=== PATIENT | male | born 1995 | race Caucasian/White ===

== ENCOUNTER 2018-04-30 14:01 | Emergency (ER) | payer OTHER ==
[2018-04-30 14:01] VITALS: BMI 25.0
[2018-04-30 14:26] VITALS: BP 114/77; PULSE 89; RESP 18; TEMP 97.8; O2SAT 100
[2018-04-30] MEDS ORDERED: Sodium Chloride 0.9% 1,000 ML IV STA (14:55)
[2018-04-30 15:11] LABS: PH,URINE 8.5 (4.7-8.0); URINE BILIRUBIN NEGATIVE (NEGATIVE); URINE BLOOD NEGATIVE (NEGATIVE); URINE GLUCOSE (UA) NEGATIVE (NEGATIVE); URINE LEUKOCYTE ESTERASE NEGATIVE Leu/uL (NEGATIVE); URINE PROTEIN 30 mg/dL (<30 mg/dL); URINE UROBILINOGEN 0.2 E.U./dL (<1 E.U./dL)
[2018-04-30 15:13] LABS: URINE APPEARANCE CLEAR (CLEAR); URINE COLOR YELLOW (YELLOW)
[2018-04-30 15:20] LABS: URINE EPITHELIAL CELLS 0 - 2 /hpf (0-5); URINE RBC 0 - 2 /hpf (0-2); URINE WBC 0 - 2 /hpf (0-6)
[2018-04-30 15:21] LABS: URINE BACTERIA FEW /hpf
[2018-04-30 15:28] LABS: BASO # 0.02 K/mm3 (0.0-2.0); BASO % 0.4 % (0.0-3.0); EOS % 0.5 % (1.5-5.0); GRAN # 4.1 (1.4-6.5); GRAN % 72.4 % (50.0-68.0); HEMOGLOBIN 14.6 g/dL (14.0-18.0); LYMPH # 1.2 (1.2-3.4); MEAN CELL VOLUME 88.5 fl (80.0-105.0); MEAN CORPUSCULAR HEMOGLOBIN 31.1 pg (25.0-35.0); MEAN CORPUSCULAR HGB CONC 35.2 g/dl (31.0-37.0); MEAN PLATELET VOLUME 9.3 fl (7.0-11.0); MONO # 0.3 (0.1-0.6); MONO % 5.7 % (1.0-6.0); RBC 4.69 10^6/uL (3.5-6.1); RED CELL DISTRIBUTION WIDTH 12.1 % (11.5-14.5); WHITE BLOOD COUNT 5.7 10^3/uL (4.5-11.0)
[2018-04-30 15:36] LABS: ALB/GLOB RATIO 1.5 (1.1-1.8); ALBUMIN 4.9 g/dL (3.0-4.8); ALT/SGPT 63 U/L (7-56); AMYLASE 87 U/L (35-125); AST/SGOT 42 U/L (17-59); BLOOD UREA NITROGEN 11 mg/dL (7-21); GFR NON-AFRICAN AMERICAN > 60; LIPASE 108 U/L (23-300)
[2018-04-30 15:46] LABS: INR 1.28; PARTIAL THROMBOPLASTIN TIME 26.9 Seconds (25.1-36.5); PROTHROMBIN TIME 14.7 SECONDS (9.4-12.5)
--- NOTE | 2018-04-30 22:16 | ED PDOC ---
Arrival/HPI - General Chief Complaint: GI Problem Time Seen by Provider: 04/30/18 14:28 Historian: Patient - History of Present Illness Narrative History of Present Illness (Text): 22 year old with no significant past medical history presents to the emergency department with father complaining of vomiting since 11 a.m. this morning s/p drinking large amounts of alcohol last night. Patient was drinking liquor last night, states he was drinking on an empty stomach.States he has vomited over 30 times this morning. Unable to tolerate PO today. States this has happened to him before a few months ago and that he visited his primary doctor where he received Zofran which provided relief. Denies drug use, alcohol use today, SI, HI, hallucinations, abdominal pain, diarrhea, constipation, headache, dizziness, chest pain, SOB, urinary symptoms, back pain, neck pain, vision changes, or any other associated complaints. Past Medical History - Provider Review Nursing Documentation Reviewed: Yes - Psychiatric Hx Substance Use: No Family/Social History - Physician Review Nursing Documentation Reviewed: Yes Family/Social History: No Known Family HX Smoking Status: Never Smoked Hx Alcohol Use: Yes Hx Substance Use: No Allergies/Home Meds Allergies/Adverse Reactions: Allergies No Known Allergies Allergy (Verified 04/30/18 14:27) Home Medications: Home Meds Medication Instructions Recorded Confirmed No Known Home Med 10/17/15 04/30/18 Review of Systems - Physician Review All systems were reviewed & negative as marked: Yes - Review of Systems Constitutional: Normal. absent: Fatigue, Fevers Eyes: Normal. absent: Photophobia ENT: Normal. absent: Sore Throat, Sinus Congestion Respiratory: Normal. absent: SOB, Cough Cardiovascular: Normal. absent: Chest Pain, Palpitations, Syncope Gastrointestinal: Normal, Nausea, Vomiting, Appetite Changes. absent: Abdominal Pain, Stool Changes Genitourinary Male: Normal. absent: Dysuria, Frequency Musculoskeletal: Normal. absent: Arthralgias, Back Pain, Neck Pain Skin: Normal. absent: Rash Neurological: Normal. absent: Headache, Dizziness, Gait Changes, Disequilibrium Endocrine: Normal Hemo/Lymphatic: Normal Psychiatric: Normal Physical Exam Vital Signs Reviewed: Yes Vital Signs Temp Pulse Resp BP Pulse Ox 04/30/18 14:25 97.8 F 89 18 114/77 100 Temperature: Afebrile Blood Pressure: Normal Pulse: Regular Respiratory Rate: Normal Appearance: Positive for: Well-Appearing, Non-Toxic, Comfortable Pain Distress: None Mental Status: Positive for: Alert and Oriented X 3 - Systems Exam Head: Present: Atraumatic, Normocephalic Pupils: Present: PERRL Extroacular Muscles: Present: EOMI Conjunctiva: Present: Normal Mouth: Present: Moist Mucous Membranes Pharnyx: Present: Normal. No: ERYTHEMA, EXUDATE, TONSILS ENLARGED Nose (External): Present: Atraumatic Nose (Internal): Present: Normal Inspection Neck: Present: Normal Range of Motion. No: Meningeal Signs, MIDLINE TENDERNESS, Paraspinal Tenderness Respiratory/Chest: Present: Clear to Auscultation, Good Air Exchange. No: Respiratory Distress, Accessory Muscle Use Cardiovascular: Present: Regular Rate and Rhythm, Normal S1, S2, Peripheal Pulses Present Abdomen: Present: Normal Bowel Sounds. No: Tenderness, Distention, Peritoneal Signs, Rebound, Guarding Back: Present: Normal Inspection. No: CVA Tenderness, Midline Tenderness, Paraspinal Tenderness Upper Extremity: Present: Normal Inspection, Normal ROM, NORMAL PULSES, Neurovas cularly Intact, Capillary Refill < 2s. No: Cyanosis, Edema Lower Extremity: Present: Normal Inspection, NORMAL PULSES, Normal ROM, Neurovascularly Intact, Capillary Refill < 2 s. No: Edema Neurological: Present: GCS=15, CN II-XII Intact, Speech Normal, Motor Func Grossly Intact, Normal Sensory Function, Gait Normal Skin: Present: Warm, Dry, Normal Color. No: Rashes Lymphatic: No: Cervical Adenopathy Psychiatric: Present: Alert, Oriented x 3, Normal Insight, Normal Concentration, Normal Affect, Normal Mood Medical Decision Making ED Course and Treatment: Initial Plan: * CBC, CMP * Lipase * Coags * UA * Obstructive Series * IVF * Zofran * Pepcid Patient reports decreased nausea after medications, but is asking to leave ED prior to lab results or imaging. The patient is choosing to leave against medical advice. I have personally explained to the patient that choosing to do so may result in permanent bodily harm, disability, or . I have discussed at great length that without further evaluation and monitoring there may be unforeseen circumstances and/or deterioration causing permanent bodily harm or as a result of their choice. The patient is alert, oriented, and shows the mental capacity to make clear decisions regarding the patients health care at this time. The patient continues to wish to leave against medical advice. In light of the patients decision to leave against medical advice, follow-up nichols s been arranged and the patient is aware of the importance to following up as instructed. The patient has been advised that they should return to the emergency room immediately if they change their mind at any time, or if their condition begins to change or worsen in any way. AMA form signed by me and patient, witnessed by nurse Keerthi. IV line removed prior to patient leaving ED. - Lab Interpretations Lab Results: 04/30/18 15:10 04/30/18 15:10 Lab Results 04/30/18 15:10: Sodium 140, Potassium 3.8, Chloride 104, Carbon Dioxide 26, Anion Gap 14, BUN 11, Creatinine 0.7 L, Est GFR ( Amer) > 60, Est GFR (Non-Af Amer) > 60, Random Glucose 101, Calcium 10.0, Total Bilirubin 0.7, AST 42, ALT 63 H, Alkaline Phosphatase 58, Total Protein 8.1, Albumin 4.9 H, Globulin 3.2, Albumin/Globulin Ratio 1.5, Amylase 87, Lipase 108 04/30/18 15:10: PT 14.7 H, INR 1.28, APTT 26.9 04/30/18 15:10: WBC 5.7, RBC 4.69, Hgb 14.6, Hct 41.5 L, MCV 88.5, MCH 31.1, MCHC 35.2, RDW 12.1, Plt Count 283, MPV 9.3, Gran % 72.4 H, Lymph % (Auto) 21.0 L, [place] % (Auto) 5.7, Eos % (Auto) 0.5 L, Baso % (Auto) 0.4, Gran # 4.10, Lymph # (Auto) 1.2, [place] # (Auto) 0.3, Eos # (Auto) 0.0, Baso # (Auto) 0.02 04/30/18 15:00: Urine Color Yellow, Urine Appearance Clear, Urine pH 8.5, Ur Specific [place] 1.015, Urine Protein 30 H, Urine Glucose (UA) Negative, Urine Ketones Negative, Urine Blood Negative, Urine Nitrate Negative, Urine Bilirubin Negative, Urine Urobilinogen 0.2, Ur Leukocyte Esterase Negative, Urine RBC 0 - 2, Urine WBC 0 - 2, Ur Epithelial Cells 0 - 2, Urine Bacteria Few - RAD Interpretation Radiology Orders: 04/30/18 14:55 obstructive [ABD 2 VIEWS (FLAT/UP OR DECUB)] [RAD] Stat - Medication Orders Current Medication Orders: Discontinued Medications Famotidine (Pepcid) 20 mg IVP STAT STA Stop: 04/30/18 14:44 Last Admin: 04/30/18 15:01 Dose: 20 mg IVP Administration Document 04/30/18 15:01 EQ (Rec: 04/30/18 15:01 EQ [id number] Charges for Administration # of IVP Administrations 1 Sodium Chloride (Sodium Chloride 0.9%) 1,000 mls @ 999 mls/hr IV .Q1H1M STA Stop: 04/30/18 15:55 Last Admin: 04/30/18 15:00 Dose: 999 mls/hr eMAR Start Stop Document 04/30/18 15:00 EQ (Rec: 04/30/18 15:00 [facility] Intravenous Solution Start Date 04/30/18 Start Time 15:00 Ondansetron HCl (Zofran Inj) 4 mg IVP STAT STA Stop: 04/30/18 14:44 Last Admin: 04/30/18 15:00 Dose: 4 mg IVP Administration Document 04/30/18 15:00 EQ (Rec: 04/30/18 15:00 EQ [facility] Charges for Administration # of IVP Administrations 1 Disposition/Present on Arrival - Present on Arrival Any Indicators Present on Arrival: No History of DVT/PE: No History of Uncontrolled Diabetes: No Urinary Catheter: No History of Decub. Ulcer: No History Surgical Site Infection Following: None - Disposition Have Diagnosis and Disposition been Completed?: No Diagnosis: Vomiting, Left against medical advice Disposition: AGAINST MEDICAL ADVICE Disposition Time: 15:30 Patient Plan: Discharge Condition: STABLE Discharge Instructions (ExitCare): Nausea and Vomiting, Adult (DC), Leaving Against Medical Advice Additional Instructions: Increase fluids to stay hydrated [place] diet Followup with primary doctor or clinic tomorrow Return to ER if you wish to be re-evaluated or for new/worsening symptoms Referrals: [facility] at [facility] [place] [Outside] - Follow up with primary Angy Chen MD [Medical Doctor] - Follow up with primary Forms: [employer] ([place])
== END 2018-04-30 15:30 | disposition left against medical advice (07) ==
LOC: ED 14:01
DX: R11.10 Vomiting, unspecified (principal)
CPT/HCPCS: 74019; 80053; 81001; 82150; 83690; 85025; 85610; 85730; 87086; 96374; 96375; 99283; J2405; J7030